=== PATIENT | male | born 1965 | race Caucasian/White ===

== ENCOUNTER 2017-10-24 13:56 | Inpatient (IN) | END 2017-10-25 15:40 | disposition home or self-care (01) | DRG 243 ==

== ENCOUNTER 2019-06-16 16:51 | Observation (INO) | payer MEDICAID ==
[~2019-06-16] VITALS: Ht 160 cm; Wt 80.0 kg
[~2019-06-16 16:51] MED LIST: BENA20TA4 PO; METF-849 PO
[2019-06-16] MEDS ORDERED: ONDANSETRON 4 MG INJ IV STA (17:38)
[2019-06-16] MEDS ORDERED: morphine 2 MG INJ IV STA (17:38)
[2019-06-16] MEDS ORDERED: SOD CHLORIDE 0.9% 1,000 ML IV ONE (18:00)
[2019-06-16] MEDS ORDERED: GLUCOSE GEL 15 GRAM TUBE PO PRN ×2 (19:00)
[2019-06-16] MEDS ORDERED: GLUCOSE GEL 15 GRAM TUBE BUCCAL PRN (19:00)
[2019-06-16] MEDS ORDERED: NACL 0.9% 3 ML SYG IV SCH (19:00)
[2019-06-16] MEDS ORDERED: morphine 2 MG INJ IV PRN (19:00)
[2019-06-16] MEDS ORDERED: HYDROCODONE/APAP (5/325) TAB PO PRN (19:00)
[2019-06-16] MEDS ORDERED: LORAZEPAM 2 MG INJ IV PRN (19:00)
[2019-06-16] MEDS ORDERED: GLUCAGON 1 MG INJ IM PRN (19:00)
[2019-06-16] MEDS ORDERED: DEXTROSE 50% 50 ML SYRINGE IV PRN ×2 (19:00)
[2019-06-16] MEDS ORDERED: hydrALAzine 20 MG INJ IV PRN (19:00)
[2019-06-16] MEDS ORDERED: DOCUSATE SODIUM 100 MG CAP PO PRN (19:00)
[2019-06-16] MEDS ORDERED: ONDANSETRON 4 MG INJ IV PRN (19:00)
[2019-06-16] MEDS ORDERED: ALBUTEROL/IPRATROPIUM (NEB) 3 ML AMP HHN PRN (19:00)
[2019-06-16] MEDS ORDERED: NITROGLYCERIN (SL) 0.4 MG TAB SL PRN (19:00)
[2019-06-16] MEDS ORDERED: MAGNESIUM HYDROXIDE 30ML CUP PO PRN (19:00)
[2019-06-16] MEDS ORDERED: ACETAMINOPHEN 325 MG TAB PO PRN (19:00)
[2019-06-16] MEDS: HEPARIN 5,000 UNIT/1 ML VIAL SC SCH (20:17)
[2019-06-16] MEDS: SOD CHLORIDE 0.45% 1,000 ML IV SCH (20:17)
[2019-06-16] MEDS: INSULIN ASPART [NOVOLOG] 3 ML PEN SC SCH (20:27)
[2019-06-16 22:39] VITALS: BP 131/71; PULSE 108; RESP 18
[2019-06-16 23:34] VITALS: Ht 160 cm; Wt 80.0 kg
[2019-06-16 23:56] VITALS: BP 118/61; PULSE 107; RESP 18
[2019-06-17] MEDS: INSULIN ASPART [NOVOLOG] 3 ML PEN SC SCH ×3 (01:22→09:00)
[2019-06-17] MEDS ORDERED: ACCU-CHEK XX SCH (02:00)
[2019-06-17 04:11] VITALS: BP 113/61; PULSE 87; RESP 18
[2019-06-17 07:17] VITALS: BP 126/65; PULSE 85; RESP 20
[2019-06-17] MEDS: SOD CHLORIDE 0.45% 1,000 ML IV SCH (08:49)
[2019-06-17] MEDS: HEPARIN 5,000 UNIT/1 ML VIAL SC SCH (08:58)
[2019-06-17] MEDS ORDERED: ASPIRIN (EC) 325 MG TAB PO SCH (09:00)
== END 2019-06-17 12:00 | disposition home or self-care (01) ==
LOC: E/R 16:51 → 6WM 18:57
PROVIDERS: ADMIT Hospitalist; ATTEND Hospitalist
DX: R07.9 Chest pain, unspecified (principal); I10 Essential (primary) hypertension; E11.9 Type 2 diabetes mellitus without complications; Z79.84 Long term (current) use of oral hypoglycemic drugs; Z79.4 Long term (current) use of insulin; Z95.0 Presence of cardiac pacemaker; Z87.891 Personal history of nicotine dependence; Z79.899 Other long term (current) drug therapy; R06.02 Shortness of breath
CPT/HCPCS: 36415; 71045; 80048; 80061; 82550; 82553; 82962; 83036; 83735; 84100; 84439; 84443; 84484; 85025; 85378; 93005; 93306; 94664; 96374; 96375; J1644; J1815; J2270; J2405; J7030; Z7500; Z7502; Z7610; 99217; G0378